=== PATIENT | male | born 1970 | race Caucasian/White ===

== ENCOUNTER 2021-09-05 14:00 | Outpatient (CLI) | payer BC | END 2021-09-05 14:01 | disposition home or self-care (01) | LOC: CSHLAB 14:00 | PROVIDERS: ATTEND Surgery | DX: Z20.822 Contact with and (suspected) exposure to COVID-19 (principal); K42.9 Umbilical hernia without obstruction or gangrene | CPT/HCPCS: U0003; U0005 ==

== ENCOUNTER 2021-09-09 08:17 | Day surgery (SDC) | payer BC ==
[2021-09-05 09:44] VITALS: BMI 28.8
[2021-09-09] MEDS ORDERED: Lidocaine 1% MPF 2 ML VIAL ONE (08:40)
[2021-09-09] MEDS ORDERED: EPINEPHrine 1 MG/ML AMP ONE (09:27)
[2021-09-09] MEDS ORDERED: Bupivacaine 0.25% HCL 30 ML VIAL ONE (09:27)
[2021-09-09] MEDS ORDERED: Lidocaine 1% PF 5 ML VIAL ONE (09:33)
[2021-09-09] MEDS ORDERED: Ondansetron PF 4 MG/2 ML Vial ONE (09:33)
[2021-09-09] MEDS ORDERED: PROPOFOL 20 ML ONE (09:33)
[2021-09-09] MEDS ORDERED: Dexamethasone 4 mg/ml Vial ONE (09:33)
[2021-09-09] MEDS ORDERED: Fentanyl 100 MCG/2 ML VIAL ONE (09:33)
[2021-09-09] MEDS ORDERED: Clindamycin/D5W 600 MG in Premix Bag 1 BAG IVPB SCH (09:45)
[2021-09-09] MEDS ORDERED: Glycopyrrolate 0.2 MG/ML 5 ML SYRINGE ONE (10:09)
[2021-09-09] MEDS ORDERED: ePHEDrine Sulfate 50 MG/10 ML VIAL ONE (10:12)
== END 2021-09-09 12:00 | disposition home or self-care (01) ==
LOC: CSHSDC 08:17
PROVIDERS: ATTEND Surgery
PROC: 0WQF0ZZ Repair Abdominal Wall, Open Approach (ICD-10-PCS; principal; 2021-09-09)
DX: K43.9 Ventral hernia without obstruction or gangrene (principal); G25.0 Essential tremor; Z88.0 Allergy status to penicillin
CPT/HCPCS: J0171; J1100; J2405; J2704; J3010; J3490; S0020